=== PATIENT | female | born 1985 | race Caucasian/White ===

== ENCOUNTER 2018-10-22 10:48 | Outpatient (CLI) | payer BC ==
[2018-10-22 11:56] LABS: Hemoglobin 13.9 g/dL (12.0-16.0); Mean Corpuscular HGB CONC 32.4 g/dL (32.0-36.0); Mean Corpuscular Volume 89.3 fL (78.0-98.0); Mean Platelet Volume 7.4 fL (7.4-10.4); Platelet Count 298 thou/uL (130-400); RBC Distribution Width 11.7 % (11.5-14.5); White Blood Cell (WBC) Count 6.8 thou/uL (4.8-10.8)
[2018-10-22 12:00] LABS: BHCG - Serum Negative (NEGATIVE); Pregs Control Background? CLEAR/WHITE (CLR/WHITE); Pregs Control Bar Appear? YES (CONTROL BAR)
== END 2018-10-22 10:49 | disposition home or self-care (01) ==
LOC: LABBT 10:48
PROVIDERS: ATTEND Obstetrics & Gynecology
DX: Z01.818 Encounter for other preprocedural examination (principal); R10.2 Pelvic and perineal pain; N92.0 Excessive and frequent menstruation with regular cycle; N94.6 Dysmenorrhea, unspecified
CPT/HCPCS: 84703; 85027; 93005; 93010

== ENCOUNTER 2018-10-31 05:53 | Observation (INO) | payer BC ==
[2018-10-22 11:16] VITALS: BMI 39.3
[2018-10-31] MEDS ORDERED: CEFAZOLIN 2 GM/50 ML BAG ONE (06:27)
[2018-10-31] MEDS ORDERED: Lidocaine 1% w/Epinephrine 1:100K 30 ML VIAL ONE (06:33)
[2018-10-31] MEDS ORDERED: Bupivacaine HCl 0.5%/Epinephrine 1:200,000/PF 30 ml Vial ONE (06:33)
[2018-10-31] MEDS ORDERED: Fentanyl 100 MCG/2 ML VIAL ONE ×4 (06:43→12:42)
[2018-10-31] MEDS ORDERED: Midazolam HCl 2 mg/2 ml Vial ONE (06:43)
[2018-10-31] MEDS ORDERED: Calcium Chloride 1 GM/10 ML Abboject SYRINGE ONE (08:46)
[2018-10-31] MEDS ORDERED: Thrombin 5000 UNITS/5 ML VIAL ONE (08:46)
[2018-10-31] MEDS ORDERED: HYDROcodone/Acetaminophen 10/325 mg Tablet PO PRN (11:25)
[2018-10-31] MEDS ORDERED: Zolpidem Tartrate 5 MG TAB PO PRN (11:25)
[2018-10-31] MEDS ORDERED: diphenhydrAMINE 25 MG CAP PO PRN (11:25)
[2018-10-31] MEDS ORDERED: Simethicone Chewable 80 MG TAB PO PRN (11:25)
[2018-10-31] MEDS ORDERED: Ondansetron PF 4 MG/2 ML Vial IVP PRN (11:25)
[2018-10-31] MEDS ORDERED: Promethazine HCl 25 MG/ML VIAL ONE (11:35)
[2018-10-31] MEDS ORDERED: Lidocaine 1% PF 5 ML VIAL ONE (12:06)
[2018-10-31] MEDS ORDERED: PROPOFOL 200 MG/20 ML VIAL ONE (12:06)
[2018-10-31] MEDS ORDERED: Ondansetron PF 4 MG/2 ML Vial ONE (12:06)
[2018-10-31] MEDS ORDERED: Dexamethasone 20 MG/5 ML VIAL ONE (12:06)
[2018-10-31] MEDS ORDERED: Rocuronium Bromide 10 MG/ML (10ML VIAL) ONE (12:06)
[2018-10-31] MEDS ORDERED: Ketorolac Tromethamine 30 MG/ML VIAL ONE (12:06)
[2018-10-31] MEDS ORDERED: Glycopyrrolate 0.2 MG/ML 5 ML SYRINGE ONE (12:06)
[2018-10-31] MEDS ORDERED: PHENYLEPHRINE-NS 100 MCG/ML 10 ML SYRINGE ONE (12:06)
[2018-10-31] MEDS: Lactated Ringer's 1,000 ML IV SCH ×2 (14:15→18:15)
[2018-10-31] MEDS: Ketorolac Tromethamine 30 MG/ML VIAL IVP SCH ×4 (14:15→22:48)
[2018-10-31] MEDS ORDERED: Morphine 4 MG/ML VIAL SLOW IVP SCH (14:30)
[2018-10-31] MEDS: HYDROcodone/Acetaminophen 10/325 mg Tablet PO PRN (18:33)
[2018-11-01] MEDS: Lactated Ringer's 1,000 ML IV SCH ×2 (04:22→07:03)
[2018-11-01] MEDS: Ketorolac Tromethamine 30 MG/ML VIAL IVP SCH (04:26)
[2018-11-01] MEDS ORDERED: Ibuprofen 800 MG TAB PO SCH (06:00)
[2018-11-01] MEDS: HYDROcodone/Acetaminophen 10/325 mg Tablet PO PRN (08:07)
[2018-11-01 11:44] VITALS: BP 100/57; TEMP 98.2
--- NOTE | 2018-11-03 09:36 | OP ---
DATE OF PROCEDURE: 10/31/2018 PREOPERATIVE DIAGNOSES: 1. A 33-year-old female with uterine hypertrophy. 2. Menorrhagia. 3. Dysmenorrhea. 4. Pelvic adhesions. 5. Cystocele stage 1. 6. Rectocele stage 2 to 3. PROCEDURES PERFORMED: 1. Robotic total laparoscopic hysterectomy. 2. Bilateral salpingectomy. 3. Lysis of adhesions. 4. Plasmax. 5. Anterior and posterior repair. 6. Perineorrhaphy. SPECIMENS REMOVED: Uterus and bilateral tubes. ESTIMATED BLOOD LOSS: 100 mL. CLINICAL HISTORY: The patient is a 33-year-old female, who presented to my office with complaint of heavy painful bleeding and pressure. She was also concerned about feeling full in the vagina. The patient was evaluated by both exam and ultrasonography and was noted to have a cystocele and a rectocele, which at that point in time was graded as stage 2 and was thought to have a larger defect anteriorly. The patient reported completing her childbearing years and was wanting a care to solution as the symptoms were noted to be disruptive and professionalized. The risks, benefits, and possible complications of surgical intervention were discussed, and the patient wished to proceed with the proposed procedure. DESCRIPTION OF PROCEDURE: The patient was taken to the operating room, where general anesthesia was obtained. She was prepped and draped in the usual sterile fashion. A weighted speculum was placed into the vagina, and the Castellanos catheter was atraumatically placed and draining clear urine. The anterior lip of the cervix was identified and grasped with single tooth tenaculum, and then a uterine manipulator was placed by placing securing stay suture. Once this was placed, all instruments were removed and the legs were placed in downward position. The attention was turned to the abdomen, where an incision was made in the lower umbilical border and under direct visualization, the 5-mm trocar was placed into the abdomen. The abdomen was then insufflated with CO2 gas and under visualization, the left and right operating port sites were placed with an 8-mm trocar. The catering administrative assistant site was then placed with a 10-mm trocar in the right lower quadrant. The patient was placed in steep Trendelenburg, and the robot was docked. The surgery then was performed as follows. The adnexal structures were identified, and the course of the ureter was noted well below the area of focus. The fimbriated end of the fallopian tubes was elevated, and the mesosalpinx was desiccated and dissected. The IP was taken down with cautery and then severed and the round ligaments in similar fashion were taken adjacent to the uterus. This allowed for opening of the broad ligament. Broad ligament was opened, and the uterine vessels were skeletonized. The bladder flap was created anteriorly towards the midline, and the uterine arteries were desiccated occluding the blood supply and allowing the ovarian pedicle to drop out further laterally away from the area of interest. On similar fashion, the left side was taken down by elevating and identifying the fimbriated ends of the tubes, dissecting them towards the uterus, taking the IP and the rounds ligaments and opening up the broad ligament to skeletonize the uterine arteries. Once the vasculature was occluded on both the left and right sides, the bladder flap was further developed and the cervical vaginal junction was identified. A circumferential incision was made to release the uterus, and the uterus was pulled through with the tubes attached into the vagina to maintain insufflation. Copious irrigation of the pelvis was performed. The ovarian pedicles and the areas where the bowel adhesion had been released prior to the surgical operation on the uterus, were all noted to be hemostatic. The vagina was closed in a full thickness running locking suture with V-Loc suture with excellent hemostasis. The peritoneum was reapproximated and once the abdomen was copiously irrigated, the Plasmax infusion was smeared over the denuded and operative site. The patient tolerated the procedure well. The robot was undocked, and the CO2 gas was released from the abdomen. The port sites were removed, and fascial closure was performed on the umbilical and catering administrative assistant port sites given these were the larger than 8-mm port site. The skin closure was performed on all 4 sites, and excellent hemostasis was noted. There were reinforced with Steri-Strips over the incision. The attention was then turned down to the vagina, where the uterus was removed and sent off for specimen. The Pitressin was then used on the anterior surface of the mucosa, where the cystocele was noted. Only a small defect was noted while the patient was completely relaxed, so an incision was made over the blanched areas where the Pitressin was infused and the mucosa was dissected away revealing the herniated supportive tissue. This was gathered by using [id number] and interrupted sutures. Once the closure of the cystocele defect was completed, the mucosa was trimmed and closed over the defect with excellent hemostasis. The attention was then turned down to the rectocele, which initially was thought to be stage 2; however, with the patient completely relaxed, it was noted to be a stage 3. The distal and proximal ends of the defect were identified with an Allis clamp, and the Pitressin injection was performed underneath the mucosa. The blanched areas were noted, and the incision was made over the defects to open up the mucosa. The use of Allis clamps and tenotomy scissors to open the defects was performed, and then imbricating [id number] and interrupted sutures were used to gather the connective tissue to re-support the rectum. Once this was completed, the mucosa was trimmed, and the closure of the mucosa over the defects was performed. There was Surgicel placed between the mucosa and the gathered connective tissue to aid in scarring and further support of the defect. Once this closure was completed, the suture lines were felt by the surgeon's finger and noted to be intact and well supported. The Castellanos catheter was removed, and the patient was cleansed and de-draped. All needle, sponge, lap, and instrument counts were correct x2. The patient was transferred to a [facility] and sent to the postsurgical unit in satisfactory condition. There were no other issues surrounding this procedure. The perineorrhaphy site was also hemostatic and well approximated at the end of the procedure. Job ID: [id number]
[2018-11-05] MEDS ORDERED: Ibuprofen 800 MG TAB PO SCH (22:00)
== END 2018-11-01 11:57 | disposition home or self-care (01) ==
LOC: SDC 05:53 → 3SE 12:26
PROVIDERS: ADMIT Obstetrics & Gynecology; ATTEND Obstetrics & Gynecology
PROC: 0UT94ZZ Resection of Uterus, Percutaneous Endoscopic Approach (ICD-10-PCS; principal; 2018-10-31)
PROC: 0UT74ZZ Resection of Bilateral Fallopian Tubes, Percutaneous Endoscopic Approach (ICD-10-PCS; 2018-10-31)
PROC: 0JQC0ZZ Repair Pelvic Region Subcutaneous Tissue and Fascia, Open Approach (ICD-10-PCS; 2018-10-31)
DX: N72 Inflammatory disease of cervix uteri (principal); N81.6 Rectocele; N81.10 Cystocele, unspecified; N73.6 Female pelvic peritoneal adhesions (postinfective); Z79.899 Other long term (current) drug therapy
CPT/HCPCS: 88307; 96374; 96375; 96376; G0378; J0670; J1100; J1885; J2001; J2250; J2270; J2405; J2550; J2704; J3010